=== PATIENT | female | born 1975 | race Caucasian/White ===

== ENCOUNTER → 2022-02-12 09:57 | Outpatient (CLI) | payer OTHER, SELFPAY ==
--- NOTE | ~2022-02-12 | MM_ITS ---
EXAMINATION: MM screening sam BI w kalin HISTORY: Screening mammogram TECHNIQUE: Craniocaudal and mediolateral oblique 3-D tomosynthesis images were obtained and synthetic 2-D images were generated. CAD analysis was submitted and interpreted. COMPARISON: 03/23/2018, 02/25/2016 BREAST PARENCHYMAL COMPOSITION: The breasts are heterogeneously dense, which may obscure small masses . FINDINGS: RIGHT BREAST: No suspicious mass, calcification, or architectural distortion are identified to sugges t malignancy. There has been no suspicious interval change. LEFT BREAST: There is a possible mass in the anterior third of the slightly outer breast. IMPRESSION: 1. Possible left breast mass. 2. Additional mammographic views and possible breast ultrasound are recommended. BI-RADS Category 0: Incomplete: Needs additional imaging evaluation. Reviewed, dictated and finalized at location A. NGING MACHINE OPERATOR IMPRESSION: 1. Possible left breast mass. 2. Additional mammographic views and possible breast ultrasound are recommended . BI-RADS Category 0: Incomplete: Needs additional imaging evaluation.
== END ==
PROVIDERS: PCP Physician Assistant; Visit Provider Obstetrics & Gynecology
DX: Z12.31 Encounter for screening mammogram for malignant neoplasm of breast (principal); R92.8 Other abnormal and inconclusive findings on diagnostic imaging of breast
CPT/HCPCS: 77063; 77067

== ENCOUNTER → 2022-03-15 09:25 | Outpatient (CLI) | payer OTHER, SELFPAY ==
--- NOTE | ~2022-03-15 | MMUS_ITS ---
EXAMINATION: MM diagnostic sam LT w kalin, US breast LT complete HISTORY: Possible left breast mass in anterior third of slightly outer breast reported on 02/12/2022 screening mammogram TECHNIQUE: Additional 3-D tomosynthesis images of the breasts were performed and synthetic 2-D images were generated. CAD analysis was submitted and interpreted. High resolution complete left breast ult rasound examination including all 4 quadrants and subareolar area was performed. COMPARISON: 02/12/2022 bilateral screening mammogram FINDINGS: MAMMOGRAPHIC FINDINGS: There is heterogeneously dense breast stroma which may obscure small masses. For this reason, ultraso und examination was performed. Benign appearing circumscribed oval 6.5 x 9.5 mm opacity is noted anteriorly slightly outer mid anter ior left breast. No suspicious mammographic mass or architectural distortion, malignant calcification, skin thickening or retraction is evident. ULTRASOUND: 12:00 subareolar: Adjacent 3.6 x 8.7 mm and 2 x 4.3 mm sonolucencies with through transmission, no in ternal vascularity, consistent with benign cyst 1:00 4 cm from nipple: Circumscribed 3.4 x 6.4 x 4.7 mm sonolucency with through transmission posteri or enhancement, without internal vascularity, likely a small cyst 2:00 7 cm from nipple: 6.4 x 3.4 x 5.4 mm parallel circumscribed sonolucency with through transmissio n posterior enhancement, without internal vascularity, likely a small cyst 2:00 5 cm from nipple: Parallel circumscribed 7.2 x 4.7 x 9.7 mm sonolucency without internal vascula rity, likely a cyst or other benign process 2:00 3 cm from nipple: There are 2 adjacent cysts measuring up to 4.6 x 4.1 mm. 5:00 subareolar area: a couple of probable benign cysts are noted, the larger measuring 2.1 x 3.5 mm. 10-11:00 subareolar area: Parallel circumscribed hypoechoic 5.1 x 11.3 x 10 mm circumscribed hypoecho ic lesion with fatty hilus, likely a benign lymph node IMPRESSION: 1. Benign findings 2. Routine annual mammographic screening is recommended BI-RADS Category 2: Benign finding(s). Reviewed, dictated and finalized at location A. NESS SYSTEMS TECHNICIAN IMPRESSION: 1. Benign findings 2. Routine annual mammographic screening is recommended BI-RADS Category 2: Benign finding(s).
== END ==
PROVIDERS: PCP Physician Assistant; Visit Provider Obstetrics & Gynecology
DX: R92.8 Other abnormal and inconclusive findings on diagnostic imaging of breast (principal)
CPT/HCPCS: 76641; 77061; 77065; G0279

== ENCOUNTER 2024-03-27 09:45 | Emergency (ER) | payer OTHER, SELFPAY ==
--- NOTE | ~2024-03-27 | XR_ITS ---
Lumbosacral Spine: AP and lateral views Clinical History: Pain Findings: The normal lordotic curve is maintained. The vertebral bodies and posterior elements are i ntact. There is mild to moderate degenerative disc narrowing at L4-L5. There is mild facet arthropath y throughout the lumbar spine. The sacroiliac joints are normally outlined. Impression: Mild degenerative spondylosis overall, as detailed above. Reviewed, dictated and finalized at location . GE EXPERT Impression: Mild degenerative spondylosis overall, as detailed above.
--- NOTE | ~2024-03-27 | XR_ITS ---
EXAMINATION: XR_CERV2-3V_CR DATE: 03/27/2024 10:44 INDICATION: Neck pain. Fall. TECHNIQUE: 3 views of cervical spine were obtained. COMPARISON: None. FINDINGS: There is 6 degrees dextrocurvature of cervical spine. There is kyphosis of cervical spine. Vertebral body heights are normal. There is mildly decreased disc height at C5-C6. There is severe fa cet joint osteoarthritis at C7-T1. There is mild central canal stenosis at C5-C6. No prevertebral sof t tissue swelling. IMPRESSION: 1. Mild cervical spondylosis. Reviewed, dictated and finalized at location A. NT SERVICES DIRECTOR
--- NOTE | ~2024-03-27 | XR_ITS ---
Right Shoulder Technique: AP and scapular Y views were obtained. Clinical History: Pain Findings: No fracture or dislocation is seen. Osseous alignment is anatomic. The glenohumeral and acr omioclavicular joint spaces are preserved. Soft tissues are unremarkable. Impression: Unremarkable right shoulder radiographs. Reviewed, dictated and finalized at [facility]. BACK RIDER Impression: Unremarkable right shoulder radiographs.
--- NOTE | ~2024-03-27 | XR_ITS ---
EXAMINATION: XR hip RT min 2V DATE: 03/27/2024 10:44 INDICATION: Right hip pain. TECHNIQUE: 2 views of right hip were obtained. COMPARISON: None. FINDINGS: Alignment is normal. No fracture. The right hip joint space is normal. IMPRESSION: 1. Normal right hip. Reviewed, dictated and finalized at location A. OGRAPHER LITHOGRAPHIC IMPRESSION: 1. Normal right hip.
[2024-03-27 09:58] VITALS: BP 135/75; PULSE 83; RESP 18; TEMP 36.1; O2SAT 100
--- NOTE | 2024-03-27 10:15 | ED.GENADULT ---
HPI - General Adult General Chief complaint: Extremity Injury, Upper Stated complaint: FALL / RT shoulder And Neck Pain Source: patient Mode of arrival: ambulatory Limitations: no limitations History of Present Illness HPI narrative: Pt presents for evaluation after having a ground level fall just prior to arrival. She was walking on snow when she slipped and landed on the right side of her body. She did not her head. No loss of consciousness. She is not on blood thinners. She now reports pain in the neck, low back, right shoulder and right hip. She rates her pain in all areas other than her right hip as 7/10 in severity. She rates the pain in her right hip is 4/10 in severity. She took 600 mg of ibuprofen for symptoms which seem to he Related Data Home Medications ?Medication ?Instructions ?Recorded ?Confirmed ?Last Taken ?Type ascorbate calcium (vitamin C) 500 500 mg PO DAILY 12/02/19 06/23/23 Unknown History mg tablet cholecalciferol (vitamin D3) 1,250 1,250 mcg PO WEEKLY 12/02/19 06/23/23 Unknown History mcg (50,000 unit) capsule levonorgestrel (Mirena) 1 device intrauterine ONCE 01/04/22 06/23/23 Unknown History losartan 100 tablet 03/27/24 Unknown History mg-hydrochlorothiazide 12.5 mg tablet semaglutide (weight loss) 0.25 mg subcut 03/27/24 Unknown History mg/0.5 mL subcutaneous pen injector (Wegovy) Allergies Allergy/AdvReac Type Severity Reaction Status Date / Time Penicillins Allergy Mild Unknown Verified 03/27/24 10:15 [facility] Past Medical History Medical History (Updated 03/27/24 @ 11:08 by Luis Marie, [facility], ) Miscarriage Hypertension Surgical History Surgical History History of delivery Family History Family History Other Breast cancer Grandparent Diabetes mellitus Mother Hypertension Social History Social History Smoking status: Never smoker Alcohol intake: current Drinks per week: 4 Substance use: never Course Course Level of Care: Express Care Visit Vital Signs Vital signs: Vital Signs Temperature 36.1 C L 01/08/25 09:58 Pulse Rate 83 03/27/24 09:58 Respiratory Rate 18 03/27/24 09:58 Blood Pressure 135/75 03/27/24 09:58 Pulse Oximetry 100 03/27/24 09:58 Oxygen Delivery Room Air 03/27/24 09:58 Temperature 36.1 C L 03/27/24 09:58 Pulse Rate 83 03/27/24 09:58 Respiratory Rate 18 03/27/24 09:58 Blood Pressure 135/75 03/27/24 09:58 Pulse Oximetry 100 03/27/24 09:58 Oxygen Delivery Room Air 03/27/24 09:58 Medical Decision Making MDM Narrative Medical decision making narrative: This is a 48-year-old female who presented for evaluation after experiencing a fall just prior to arrival. X-rays were negative. Exam consistent with contusions and muscle strains. Recommend continued ibuprofen. Advised on RICE therapy. Follow up with primary provider. Go to the ER for worsening symptoms. Pt in agreement with plan of care. Vital Signs Vital Signs: Vital Signs Temperature 36.1 C L 03/27/24 09:58 Pulse Rate 83 03/27/24 09:58 Respiratory Rate 18 03/27/24 09:58 Blood Pressure 135/75 03/27/24 09:58 Pulse Oximetry 100 03/27/24 09:58 Oxygen Delivery Room Air 03/27/24 09:58 Temperature 36.1 C L 03/27/24 09:58 Pulse Rate 83 03/27/24 09:58 Respiratory Rate 18 03/27/24 09:58 Blood Pressure 135/75 03/27/24 09:58 Pulse Oximetry 100 03/27/24 09:58 Oxygen Delivery Room Air 03/27/24 09:58 Imaging Data Radiologist's impression: Right Shoulder Technique: AP and scapular Y views were obtained. Clinical History: Pain Findings: No fracture or dislocation is seen. Osseous alignment is anatomic. The glenohumeral and acromioclavicular joint spaces are preserved. Soft tissues are unremarkable. Impression: Unremarkable right shoulder radiographs. Lumbosacral Spine: AP and lateral views Clinical History: Pain Findings: The normal lordotic curve is maintained. The vertebral bodies and posterior elements are intact. There is mild to moderate degenerative disc narrowing at L4-L5. There is mild facet arthropathy throughout the lumbar spine. The sacroiliac joints are normally outlined. Impression: Mild degenerative spondylosis overall, as detailed above EXAMINATION: XR_CERV2-3V_CR DATE: 03/27/2024 10:44 INDICATION: Neck pain. Fall. TECHNIQUE: 3 views of cervical spine were obtained. COMPARISON: None. FINDINGS: There is 6 degrees dextrocurvature of cervical spine. There is kyphosis of cervical spine. Vertebral body heights are normal. There is mildly decreased disc height at C5-C6. There is severe facet joint osteoarthritis at C7-T1. There is mild central canal stenosis at C5-C6. No prevertebral soft tissue swelling. IMPRESSION: 1. Mild cervical spondylosis. EXAMINATION: XR hip RT min 2V DATE: 03/27/2024 10:44 INDICATION: Right hip pain. TECHNIQUE: 2 views of right hip were obtained. COMPARISON: None. FINDINGS: Alignment is normal. No fracture. The right hip joint space is normal. IMPRESSION: 1. Normal right hip. Discharge Plan Discharge Clinical Impression: Low back strain, Neck strain, Contusion of right shoulder, Contusion of hip, right Patient Disposition: Home, Self-Care Condition: Stable Instructions: Antibiotic Form, Muscle Strain (DC), Contusion in Adults (ED) Patient Language: Frisian Prescriptions: No Action losartan-hydrochlorothiazide 100-12.5 mg tablet Wegovy 0.25 mg/0.5 mL pen injector SUBCUT ascorbate calcium (vitamin C) 500 mg tablet 500 mg PO DAILY cholecalciferol (vitamin D3) 1,250 mcg (50,000 unit) capsule 1,250 mcg PO WEEKLY Mirena 20 mcg/24 hours (8 yrs) 52 mg intrauterine device 1 device intrauterine ONCE Rx Instructions: as a single dose Follow-up/Referrals: Felisha,ROSAMARIA Garrett [Primary Care Provider] - Stand Alone Forms: Work/School Release IP Time of Disposition: 11:08
== END 2024-03-27 11:12 | disposition home or self-care (01) ==
PROVIDERS: Emergency Provider Nurse Practitioner; PCP Physician Assistant
DX: S16.1XXA Strain of muscle, fascia and tendon at neck level, initial encounter (principal); S39.012A Strain of muscle, fascia and tendon of lower back, initial encounter; S40.011A Contusion of right shoulder, initial encounter; S70.01XA Contusion of right hip, initial encounter; W00.0XXA Fall on same level due to ice and snow, initial encounter; M47.896 Other spondylosis, lumbar region; M47.892 Other spondylosis, cervical region; I10 Essential (primary) hypertension
CPT/HCPCS: 72040; 72100; 73030; 73502; 99214; G0463

== ENCOUNTER 2024-05-03 15:15 | Outpatient (CLI) | payer OTHER, SELFPAY ==
--- NOTE | ~2024-05-03 | XR_ITS ---
CHEST RADIOGRAPH, PA AND LATERAL CLINICAL HISTORY: CHRONIC COUGH . COMPARISON: 11/07/2018 TECHNIQUE: PA and lateral views of the chest. FINDINGS The cardiomediastinal silhouette is unremarkable. Calcified lymph nodes within the mediastinum. Calcified granuloma within the right lower lobe. The remainder of the lungs are clear. IMPRESSION: No focal infiltrate or effusion. Reviewed, dictated and finalized at location A. RAL PLANNING COUNSELOR
== END 2024-05-03 15:16 | disposition home or self-care (01) ==
LOC: GOSHIMG 15:16
PROVIDERS: PCP Physician Assistant; Visit Provider Physician Assistant
DX: R05.3 Chronic cough (principal)
CPT/HCPCS: 71046

== ENCOUNTER 2024-05-07 16:01 | Outpatient (CLI) | payer OTHER, SELFPAY ==
--- NOTE | ~2024-05-07 | MM_ITS ---
EXAMINATION: MM screening sam BI w kalin HISTORY: Screening TECHNIQUE: Craniocaudal and mediolateral oblique 3-D tomosynthesis images were obtained and synthetic 2-D images were generated. CAD analysis was submitted and interpreted. COMPARISON: Comparison to multiple prior studies sequentially, with oldest reviewed study dated 10/2015. BREAST PARENCHYMAL COMPOSITION: Dense: The breasts are heterogeneously dense, which may obscure small masses FINDINGS: There are asymmetries and obscured masses in the upper outer quadrants of both breasts. The re are no suspicious calcifications or architectural distortion. IMPRESSION: 1. Bilateral obscured masses and asymmetries centered in the upper outer quadrant of both breasts. 2. Additional mammographic views and possible breast ultrasound are recommended. BI-RADS Category 0: Incomplete: Needs additional imaging evaluation. Reviewed, dictated and finalized at location B. TMAN IMPRESSION: 1. Bilateral obscured masses and asymmetries centered in the upper outer quadra nt of both breasts. 2. Additional mammographic views and possible breast ultrasound are recommended . BI-RADS Category 0: Incomplete: Needs additional imaging evaluation.
== END 2024-05-07 16:02 | disposition home or self-care (01) ==
LOC: MICIMG 16:02
PROVIDERS: PCP Physician Assistant; Visit Provider Nurse Practitioner Family
DX: Z12.31 Encounter for screening mammogram for malignant neoplasm of breast (principal); R92.8 Other abnormal and inconclusive findings on diagnostic imaging of breast
CPT/HCPCS: 77063; 77067

== ENCOUNTER 2024-06-06 08:29 | Outpatient (CLI) | payer OTHER, SELFPAY ==
--- NOTE | ~2024-06-06 | MMUS_ITS ---
EXAMINATION: MM diagnostic sam BI w kalin, US breast BI limited HISTORY: Bilateral asymmetries TECHNIQUE: Additional 3-D tomosynthesis images of the breasts were performed and synthetic 2-D images were generated. CAD analysis was submitted and interpreted. High resolution limited bilateral breast ultrasound was performed. COMPARISON: 05/07/2024, 03/15/2022, 02/12/2022, 03/23/2018 BREAST PARENCHYMAL COMPOSITION:Dense: The breasts are heterogeneously dense, which may obscure small masses. FINDINGS: MAMMOGRAPHIC FINDINGS: Spot compression views demonstrate effacement of the areas of asymmetry without suspicious distortion . Probable low-density circumscribed mass in the left subareolar region. ULTRASOUND: At the 9:00 position right breast, 5 cm from the nipple, there is a 2.0 x 0.9 x 2.5 cm anechoic mildl y lobulated benign cyst. At the 10:00 position right breast, 6 cm from the nipple, there is an additi onal 1.6 cm somewhat lobulated anechoic cyst. Additional smaller cysts are also present in the upper, outer quadrant of the right breast. There are multiple simple cysts in the upper, outer quadrant of the left breast, largest measuring 10 mm in maximum diameter. IMPRESSION: No distinct evidence for malignancy. Multiple cysts in the upper, outer quadrants of both breasts, a s detailed above. BI-RADS Category 2: Benign finding(s). Reviewed, dictated and finalized at location . IMPRESSION: No distinct evidence for malignancy. Multiple cysts in the upper, outer quadra nts of both breasts, as detailed above. BI-RADS Category 2: Benign finding(s).
== END 2024-06-06 08:30 | disposition home or self-care (01) ==
LOC: MICIMG 08:30
PROVIDERS: PCP Physician Assistant; Visit Provider Nurse Practitioner Obstetrics & Gynecology
DX: R92.8 Other abnormal and inconclusive findings on diagnostic imaging of breast (principal)
CPT/HCPCS: 76642; 77062; 77066; G0279